=== PATIENT | male | born 1985 | race Caucasian/White ===

== ENCOUNTER 2018-03-29 10:49 | Emergency (ER) | payer MEDICARE ==
[~2018-03-29] VITALS: Ht 170.2 cm; Wt 72.6 kg
[2018-03-29 10:53] VITALS: BP_SYST 145
[2018-03-29 11:17] LABS: BASOPHILS # (AUTO) 0.1 K/uL (0.0-0.2); EOSINOPHILS % (AUTO) 0.1 % (0.0-4.0); HEMATOCRIT 48.3 % (36-54); HEMOGLOBIN 16.3 g/dL (14.0-18.0); LYMPHOCYTES # (AUTO) 0.8 K/uL (1.0-5.5); LYMPHOCYTES % (AUTO) 7.8 % (20.5-51.5); MEAN CORPUSCULAR HEMOGLOBIN 35 pg (27-31); MEAN CORPUSCULAR HGB CONC 34 % (32-36); MEAN CORPUSCULAR VOLUME 102 fL (79.0-98.0); MONOCYTES # (AUTO) 0.5 K/uL (0.0-1.0); MONOCYTES % (AUTO) 5.1 % (1.7-9.3); PLATELET COUNT (AUTO) 210 K/uL (130-430); RED BLOOD CELL COUNT(AUTO) 4.71 MIL/uL (4.2-6.2); RED CELL DISTRIBUTION WIDTH 12.8 % (9.0-15.0); WHITE BLOOD COUNT (AUTO) 10.4 K/uL (4.8-10.8)
[2018-03-29 11:35] LABS: ANION GAP 20 (5-15); CALCIUM 9.6 mg/dL (8.4-11.0); CHLORIDE 99 mmol/L (98-107); CREATININE 1.23 mg/dL (0.55-1.30); GLUCOSE 134 mg/dL (70-99); SODIUM SERUM 136 mmol/L (136-145); UREA NITROGEN, BLOOD 13 mg/dL (8-21)
[2018-03-29 11:40] LABS: ALANINE AMINOTRANSFERASE 52 U/L (12-78); ALBUMIN 4.3 g/dL (3.4-4.8); ASPARTATE AMINOTRANSFERASE 37 U/L (10-37); TOTAL BILIRUBIN 0.5 mg/dL (0.0-1.0)
[2018-03-29 11:41] LABS: GFR AFRICAN AMERICAN 87 mL/min (>90)
[2018-03-29 11:55] LABS: CARBAMAZEPINE (TEGRETOL) < 0 ug/mL (4-12); PHENYTOIN (DILANTIN) < 0.5 ug/mL (10.0-20.0)
[2018-03-29] MEDS ORDERED: LURA40TA PO (12:31)
[2018-03-29] MEDS ORDERED: BACL10TA PO (12:31)
[2018-03-29] MEDS ORDERED: LEVE1000 PO (12:31)
[2018-03-29] MEDS ORDERED: LAM25 PO (12:31)
[2018-03-29 13:36] VITALS: BP_SYST 136
== END 2018-03-29 13:32 | disposition home or self-care (01) ==
LOC: SED 10:49
DX: R56.9 Unspecified convulsions (principal); Z79.899 Other long term (current) drug therapy
CPT/HCPCS: 36415; 80053; 80156-TC; 80184-TC; 80185-TC; 85025; 99284